=== PATIENT | male | born 1970 | race Caucasian/White ===

== ENCOUNTER 2020-11-09 18:11 | Emergency (ER) | payer SELFPAY ==
[~2020-11-09] VITALS: Ht 182.9 cm; Wt 91.0 kg
[2020-11-09] MEDS ORDERED: LORAZEPAM 2MG/ML CPJ IM STA (19:11)
[2020-11-09] MEDS ORDERED: SODIUM CHLORIDE 0.9% 1,000 ML IV ONE (19:15)
[2020-11-09] MEDS ORDERED: DIPHENHYDRAMINE 50MG/ML VIAL IM STA (20:09)
[2020-11-09] MEDS ORDERED: HALOPERIDOL LACTATE 5MG/ML VIAL IM ONE (20:15)
[2020-11-09 21:03] LABS: *BARBITURATES SCREEN URINE NEGATIVE (NEGATIVE)
[2020-11-09 21:04] LABS: *AMPHETAMINES SCREEN URINE NEGATIVE (NEGATIVE); *BENZODIAZEPINES SCREEN URINE NEGATIVE (NEGATIVE); *COCAINE SCREEN URINE NEGATIVE (NEGATIVE); METHADONE URINE SCREEN NEGATIVE (NEGATIVE); OPIATES URINE SCREEN NEGATIVE (NEGATIVE)
[2020-11-09 21:05] LABS: CANNABINOID URINE SCREEN NEGATIVE (NEGATIVE); PHENCYCLIDINE URINE SCREEN NEGATIVE (NEGATIVE)
[2020-11-09 22:08] LABS: BASOPHILS % 0.7 % (0.0-2.0); EOSINOPHILS % 2.2 % (0.0-5.0); HEMATOCRIT. 37.1 % (42.0-52.0); HEMOGLOBIN. 12.7 g/dL (14.0-18.0); LYMPHOCYTES % 38.1 % (20.0-50.0); MEAN CORPUSCULAR VOLUME 99.4 fL (80.0-94.0); MEAN PLATELET VOLUME 8.2 fl (7.4-10.4); MONOCYTES % 10.8 % (2.0-8.0); NEUTROPHILS % 48.2 % (40.0-76.0); PLATELET 91 x1000/uL (130-400); RED BLOOD CELL COUNT 3.73 mill/uL (4.7-6.1); RED CELL DISTRIBUTION WIDTH 14.1 % (11.6-14.6)
[2020-11-09 22:16] LABS: CHLORIDE 103 mEq/L (98-107)
[2020-11-09 22:20] LABS: ETHANOL BLOOD 295 mg/dL
[2020-11-10 05:54] VITALS: BP 118/80
== END 2020-11-10 06:26 | disposition home or self-care (01) ==
LOC: ER 18:11
DX: F10.129 Alcohol abuse with intoxication, unspecified (principal); Y90.8 Blood alcohol level of 240 mg/100 ml or more; R45.1 Restlessness and agitation; F91.8 Other conduct disorders; G31.9 Degenerative disease of nervous system, unspecified; D64.9 Anemia, unspecified; Z71.41 Alcohol abuse counseling and surveillance of alcoholic; Z59.0 Homelessness
CPT/HCPCS: 36415; 70450; 80053; 80305; 80320; 85025; 93005; 96360; 96361; 96372; 99285; J1200; J1630; J2060; J7030; G0480